=== PATIENT | male | born 1985 | race Caucasian/White ===

== ENCOUNTER 2017-04-28 20:03 | Emergency (ER) | payer OTHER ==
[~2017-04-28] VITALS: Ht 185.4 cm; Wt 90.7 kg
[2017-04-28 20:38] LABS: BILIRUBIN,URINE NEGATIVE (NEG); GLUCOSE,URINE NEGATIVE (NEG); NITRITE,URINE NEGATIVE (NEG); PH,URINE 5.5; PROTEIN,URINE NEGATIVE (NEG-TRACE); UROBILINOGEN,URINE 0.2 mg/dL (0.2 mg/dL)
[2017-04-28 20:46] LABS: BACTERIA,URINE 0 /HPF (0-FEW); RBC,URINE 0 /HPF (0-2); WBC,URINE OCC /HPF (0-4)
[2017-04-28 21:23] LABS: BASO % 0 % (0-3); EOS % 1 % (0-3); HEMATOCRIT 41.6 % (39.0-53.0); HEMOGLOBIN 14.4 g/dL (13.0-17.5); LYMPH # 1.8 x10^3/uL (1.0-4.8); LYMPH % 20 % (24-48); MEAN CORPUSCULAR HEMOGLOBIN 34 pg (25-35); MEAN CORPUSCULAR HGB CONC 35 g/dL (31-37); MEAN CORPUSCULAR VOLUME 97 fL (79-100); MONO % 9 % (0-9); NEUT % 71 % (31-73); PLATELET COUNT 301 x10^3/uL (140-400); RED BLOOD COUNT 4.28 x10^6/uL (4.30-5.70); RED CELL DISTRIBUTION WIDTH 12.2 % (11.5-14.5); WHITE BLOOD COUNT 8.8 x10^3/uL (4.0-11.0)
[2017-04-28] MEDS ORDERED: IV NORMAL SALINE 1000ML BAG 1,000 ML IV SCH (21:30)
[2017-04-28] MEDS ORDERED: KETOROLAC 15 MG/ML VIAL. IV ONE (21:30)
[2017-04-28 21:32] LABS: CALCIUM 9.2 mg/dL (8.5-10.1); GFR 85.5; POTASSIUM 3.3 mmol/L (3.5-5.1)
[2017-04-28 21:37] LABS: ALBUMIN 4.4 g/dL (3.4-5.0); ALBUMIN/GLOBULIN RATIO 1.2 (1.0-1.7); TOTAL BILIRUBIN 0.6 mg/dL (0.2-1.0); TOTAL PROTEIN 8.2 g/dL (6.4-8.2)
--- NOTE | 2017-04-28 22:00 | ED.ADGEN ---
Past Medical History Past Medical History: Asthma, Other Additional Past Medical Histor: chronic back pain Past Surgical History: Other Additional Past Surgical Histo: VASECTOMY Alcohol Use: None Drug Use: None Adult General Chief Complaint Chief Complaint: ABDOMINAL PAIN HPI HPI Patient is a 32 year old man, history of asthma, chronic back pain, who presents emergency department with a complaint of left-sided back pain, developing into left lower quadrant abdominal pain. Patient states that this is different from his typical back pain, which is chronic and fairly constant. He states the pain in the left abdomen is coming and going, very sharp and painful at times, denies any nausea or vomiting, any diarrhea, any constipation, any fevers or chills, any urinary complaints. No injuries. He has not taken any medication prior to coming to the ED. He states the pain began early this morning, and has been coming going all day. Review of Systems Review of Systems Constitutional: Denies fever or chills. [] Eyes: Denies change in visual acuity. [] HENT: Denies nasal congestion or sore throat. [] Respiratory: Denies cough or shortness of breath. [] Cardiovascular: Denies chest pain or edema. [] GI: Left flank and left lower quadrant abdominal pain. : Denies dysuria. [] Musculoskeletal: Denies back pain or joint pain. [] Integument: Denies rash. [] Neurologic: Denies headache, focal weakness or sensory changes. [] Endocrine: Denies polyuria or polydipsia. [] Lymphatic: Denies swollen glands. [] Psychiatric: Denies depression or anxiety. [] Current Medications Current Medications Current Medications Medications (Trade) Dose Ordered Sig/Melonie Start Time Stop Time Status Last Admin Dose Admin Dicyclomine HCl (Bentyl) 10 mg 1X ONCE 04/28/17 23:15 04/28/17 23:16 Ketorolac Tromethamine (Toradol) 10 mg 1X ONCE 04/28/17 21:30 04/28/17 21:31 DC 04/28/17 21:30 10 MG Sodium Chloride 1,000 ml @ 1,000 mls/hr Q1H 04/28/17 21:30 04/28/17 22:29 DC 04/28/17 21:30 1,000 MLS/HR Allergies Allergies Allergies Coded Allergies Type Severity Reaction Last Updated Verified No Known Drug Allergies 10/11/14 No Physical Exam Physical Exam Constitutional: Well developed, well nourished, no acute distress, non-toxic appearance. [] HENT: Normocephalic, atraumatic, bilateral external ears normal, oropharynx moist, no oral exudates, nose normal. [] Eyes: PERRLA, EOMI, conjunctiva normal, no discharge. [] Neck: Normal range of motion, no tenderness, supple, no stridor. [] Cardiovascular:Heart rate regular rhythm, no murmur, S1, S2, rubs or gallops. [] Lungs & Thorax: Bilateral breath sounds clear to auscultation, no wheezing, rhonchi, rales. No chest or crepitus or tenderness. [] Abdomen: Bowel sounds normal, soft, tenderness to palpation in the left lower quadrant, no rebound, rigidity, mild voluntary guarding, no masses, no pulsatile masses. [] Skin: Warm, dry, no erythema, no rash. [] Back: No tenderness, left CVA tenderness, left paraspinal tenderness. [] Extremities: No tenderness, no cyanosis, no clubbing, ROM intact, no edema. [] Neurologic: Alert and oriented X 3, normal motor function, normal sensory function, no focal deficits noted. [] Psychologic: Affect normal, judgement normal, mood normal. [] Current Patient Data Vital Signs Vital Signs Date Time Temp Pulse Resp B/P (MAP) Pulse Ox O2 Delivery O2 Flow Rate FiO2 04/28/17 22:12 84 14 130/69 (89) 98 Room Air 04/28/17 20:05 98.2 98.2 Lab Values Laboratory Tests Test 04/28/17 20:09 04/28/17 20:15 Urine Collection Type Unknown Urine Color Yellow Urine Clarity Clear Urine pH 5.5 Urine Specific [place] 1.025 Urine Protein Negative mg/dL (NEG-TRACE) Urine Glucose (UA) Negative mg/dL (NEG) Urine Ketones (Stick) Trace mg/dL (NEG) Urine Blood Negative (NEG) Urine Nitrite Negative (NEG) Urine Bilirubin Negative (NEG) Urine Urobilinogen Dipstick 0.2 mg/dL (0.2 mg/dL) Urine Leukocyte Esterase Negative (NEG) Urine RBC 0 /HPF (0-2) Urine WBC Occ /HPF (0-4) Urine Bacteria 0 /HPF (0-FEW) Urine Mucus Marked /LPF White Blood Count 8.8 x10^3/uL (4.0-11.0) Red Blood Count 4.28 x10^6/uL (4.30-5.70) L Hemoglobin 14.4 g/dL (13.0-17.5) Hematocrit 41.6 % (39.0-53.0) Mean Corpuscular Volume 97 fL (79-100) Mean Corpuscular Hemoglobin 34 pg (25-35) Mean Corpuscular Hemoglobin Concent 35 g/dL (31-37) Red Cell Distribution Width 12.2 % (11.5-14.5) Platelet Count 301 x10^3/uL (140-400) Neutrophils (%) (Auto) 71 % (31-73) Lymphocytes (%) (Auto) 20 % (24-48) L Monocytes (%) (Auto) 9 % (0-9) Eosinophils (%) (Auto) 1 % (0-3) Basophils (%) (Auto) 0 % (0-3) Neutrophils # (Auto) 6.2 x10^3uL (1.8-7.7) Lymphocytes # (Auto) 1.8 x10^3/uL (1.0-4.8) Monocytes # (Auto) 0.7 x10^3/uL (0.0-1.1) Eosinophils # (Auto) 0.1 x10^3/uL (0.0-0.7) Basophils # (Auto) 0.0 x10^3/uL (0.0-0.2) Sodium Level 143 mmol/L (136-145) Potassium Level 3.3 mmol/L (3.5-5.1) L Chloride Level 104 mmol/L (98-107) Carbon Dioxide Level 26 mmol/L (21-32) Anion Gap 13 (6-14) Blood Urea Nitrogen 12 mg/dL (8-26) Creatinine 1.0 mg/dL (0.7-1.3) Estimated GFR (Cockcroft-Gault) 85.5 BUN/Creatinine Ratio 12 (6-20) Glucose Level 135 mg/dL (70-99) H Calcium Level 9.2 mg/dL (8.5-10.1) Total Bilirubin 0.6 mg/dL (0.2-1.0) Aspartate Amino Transferase (AST) 15 U/L (15-37) Alanine Aminotransferase (ALT) 22 U/L (16-63) Alkaline Phosphatase 57 U/L (46-116) Total Protein 8.2 g/dL (6.4-8.2) Albumin 4.4 g/dL (3.4-5.0) Albumin/Globulin Ratio 1.2 (1.0-1.7) Lipase 147 U/L (73-393) Laboratory Tests 04/28/17 20:15 Laboratory Tests 04/28/17 20:15 EKG EKG Not indicated.[] Radiology/Procedures Radiology/Procedures [][facility] [address] [place] [address] IMAGING REPORT Signed PATIENT: VIRGINIA UNDERWOOD ACCOUNT: [id number] : 1985 LOCATION: ER AGE: 32 SEX: M EXAM STATUS: REG ER ORD. PHYSICIAN: FLORENTIN TIJERINA DO REASON: L flank/LLQ abd pain PROCEDURE: CT ABDOMEN PELVIS WO CONTRAST CT abdomen and pelvis without contrast: Reason for examination: Low back pain, left flank and left lower quadrant abdominal pain since noon today. Helical images were obtained through the abdomen and pelvis with no intravenous or oral contrast administered. Reconstruction was performed in sagittal and coronal planes. The lung bases are clear. The heart size is normal with no pericardial effusion seen. No abnormality seen at the liver, spleen, adrenal glands or pancreas. The gallbladder is contracted but no choleliths are seen. There is a large amount debris in the stomach and the patient apparently has not been nothing by mouth. No abnormality seen at the aorta or inferior vena cava. There is a small density adjacent to the medial inferior aspect of the spleen which probably represents a small splenule. The kidneys show no renal masses, renal calculi, hydronephrosis or evidence of obstructive uropathy. No abnormality is seen at the appendix. The intestinal tract shows no abnormally dilated loops of bowel or thickened bowel arana. There is no evidence of diverticulosis or diverticulitis. No evidence of bowel obstruction is seen. No abnormal seen at bladder, prostate gland or seminal vesicles. No free fluid or free air is seen in the abdomen or pelvis. Muscular bundles bilaterally appear to be symmetric and show no focal abnormalities. No acute bony abnormality is seen. IMPRESSION: No renal or ureteral calculi or evidence of obstructive uropathy. No acute abnormalities evident in the abdomen or pelvis. Exposure: One or more of the following individualized dose reduction techniques were utilized for this examination: 1. Automated exposure control 2. Adjustment of the mA and/or kV according to patient size 3. Use of iterative reconstruction technique. Electronically signed by: Erika Mclain MD (04/28/2017 10:08 PM) DICTATED and SIGNED BY: ERIKA MCLAIN MD DATE: 04/28/172158 CC: MORELIA SOLIS MD; FLORENTIN TIJERINA DO ~ Course & Med Decision Making Course & Med Decision Making Pertinent Labs and Imaging studies reviewed. (See chart for details) Patient with a normal neurologic examination, patient description, concern for possible renal calculi or other left-sided normality. After discussion at bedside patient agreeable to receiving imaging of the abdomen and pelvis, laboratory studies and urinalysis. Imaging was unremarkable, as were urinalysis and laboratory studies. Patient received pain medication in the ED, and comfortable to my reevaluation. Patient's laboratory studies and imaging did not reveal any evidence of concerning findings. I did discuss with patient at bedside. He states he still has some of his usual medication at home that he uses for his back, which is hydrocodone, although ileus a few pills remaining. I discussed with him that narcotic medications for chronic issues would have to be addressed by his primary care provider, however I will provide him with Bentyl which he can use as needed for abdominal cramping. We did discuss concerning symptoms that would prompt return to the emergency department, and dietary recommendation. Patient voiced understanding and agreement with plan as stated. Was given a dose of Bentyl prior to exit in the ED with plan as above. Dragon Disclaimer Dragon Disclaimer This electronic medical record was generated, in whole or in part, using a voice recognition dictation system. Departure Impression: Primary Impression: Left sided abdominal pain Disposition: HOME, SELF-CARE Condition: IMPROVED Scripts Dicyclomine Hcl (BENTYL) 10 Mg Capsule 10 MG PO QID Y for PAIN, #12 TAB Prov: FLORENTIN TIJERINA DO 04/28/17 FLORENTIN TIJERINA DO Apr 28, 2017 22:00
--- NOTE | 2017-04-28 22:12 | RAD ---
CT abdomen and pelvis without contrast: Reason for examination: Low back pain, left flank and left lower quadrant abdominal pain since noon today. Helical images were obtained through the abdomen and pelvis with no intravenous or oral contrast administered. Reconstruction was performed in sagittal and coronal planes. The lung bases are clear. The heart size is normal with no pericardial effusion seen. No abnormality seen at the liver, spleen, adrenal glands or pancreas. The gallbladder is contracted but no choleliths are seen. There is a large amount debris in the stomach and the patient apparently has not been nothing by mouth. No abnormality seen at the aorta or inferior vena cava. There is a small density adjacent to the medial inferior aspect of the spleen which probably represents a small splenule. The kidneys show no renal masses, renal calculi, hydronephrosis or evidence of obstructive uropathy. No abnormality is seen at the appendix. The intestinal tract shows no abnormally dilated loops of bowel or thickened bowel arana. There is no evidence of diverticulosis or diverticulitis. No evidence of bowel obstruction is seen. No abnormal seen at bladder, prostate gland or seminal vesicles. No free fluid or free air is seen in the abdomen or pelvis. Muscular bundles bilaterally appear to be symmetric and show no focal abnormalities. No acute bony abnormality is seen. IMPRESSION: No renal or ureteral calculi or evidence of obstructive uropathy. No acute abnormalities evident in the abdomen or pelvis. Exposure: One or more of the following individualized dose reduction techniques were utilized for this examination: 1. Automated exposure control 2. Adjustment of the mA and/or kV according to patient size 3. Use of iterative reconstruction technique. Electronically signed by: Erika Sher MD (04/28/2017 10:08 PM)
[2017-04-28 22:42] VITALS: BP 118/63
[2017-04-28] MEDS ORDERED: DICY10CA53 PO (22:58)
[2017-04-28] MEDS ORDERED: DICYCLOMINE HCL 10 MG CAPSULE PO ONE (23:15)
== END 2017-04-28 23:11 | disposition home or self-care (01) ==
LOC: ER 20:03
DX: R10.32 Left lower quadrant pain (principal); M54.89 Other dorsalgia; J45.909 Unspecified asthma, uncomplicated; G89.29 Other chronic pain; Z79.891 Long term (current) use of opiate analgesic; Z79.899 Other long term (current) drug therapy
CPT/HCPCS: 36415; 74176; 80053; 81001; 83690; 85027; 96361; 96374; 99285; J1885; J7030